=== PATIENT | male | born 1935 | race Two or more races ===

== ENCOUNTER 2019-03-03 19:47 | Emergency (ER) | payer MEDICARE, OTHER ==
[~2019-03-03] VITALS: Ht 170.2 cm; Wt 74.8 kg
[2019-03-04 10:00] VITALS: BP 105/68
== END 2019-03-04 12:06 | disposition home or self-care (01) ==
LOC: EDBD 19:47 → ER 19:51
DX: S20.212A Contusion of left front wall of thorax, initial encounter (principal); K80.20 Calculus of gallbladder without cholecystitis without obstruction; K40.20 Bilateral inguinal hernia, without obstruction or gangrene, not specified as recurrent; N40.0 Benign prostatic hyperplasia without lower urinary tract symptoms; G20 Parkinson's disease; V43.62XA Car passenger injured in collision with other type car in traffic accident, initial encounter; Y93.89 Activity, other specified; Y99.8 Other external cause status; Y92.410 Unspecified street and highway as the place of occurrence of the external cause
CPT/HCPCS: 71111; 72040; 74176; 93005